=== PATIENT | male | born 1955 | race African-American/Black ===

== ENCOUNTER 2021-03-23 22:35 | Inpatient (IN) | payer OTHER ==
[~2021-03-23] VITALS: Ht 190.5 cm; Wt 92.1 kg
--- NOTE | ~2021-03-23 | EMS ---
[address] [address] EMS Patient Care Report Name: YANETH HARVEY Room #: 211-P ADM IN M.R.#: [id number] Admission: 03/24/21 Attend Phys: Rivera Guzman MD Discharge: Date of : 55 Report #: [id number] THIS REPORT FOR: //name// Report Transmitted: 03/26/2021 09:41 EMS Care Summary [place], [place]/[facility] Incident [id number] @ 03/23/2021 22:10 Incident Location [id number] [place] [address] Patient YANETH MOYA Male, 65 Years 1955 Patient Address [id number] [place] [address] [address] [place] [address] Patient History Lung Cancer, Chief Complaint Respiratory distress Disposition Transported [place] Dispatch Reason Breathing Problem Transported To [facility] Narrative M42 arrived on scene to find the patient lying supine in his bed. Nursing staff said the patient had an o2 sat of 40% on room air. Patient has stage 3 lung cancer. Patient had been short of breath for around 15 minutes. Patient denied chest pain, fever, cough, or feeling lightheaded. Patient had his covid-19 vaccination and had a negative covid-19 earlier in the week. Patient was moved to the cot using a keshawn writer producer. Transport decision was made emergent to [facility]. En route I was unable to obtain IV access. Patient said [address] [address] EMS Patient Care Report Name: YANETH HARVEY Room #: 211-P ADM IN .R.#: [id number] Admission: 03/24/21 Attend Phys: Rivera Guzman MD Discharge: Date of : 55 Report #: [id number] he felt like he was able to breathe better and was able to talk in complete sentences. M42 arrived on scene of the hospital and patient care was transferred to the RN. Initial Vitals @22:28P: 176,SpO2: 70, @22:27P: 126,BP: 91/59,SpO2: 68, @22:25P: 132,SpO2: 74, @22:33P: 131,SpO2: 60, @22:30P: 128,SpO2: 69, @22:26P: 128,SpO2: 69, @22:26P: 107,R: 18,BP: 91/67,Pain: 0/10,GCS: 15,SpO2: 68,Revised Trauma: 12, @22:31P: 124,R: 16,BP: 91/54,Pain: 0/10,GCS: 15,SpO2: 80,Revised Trauma: 12, @22:22P: 86,R: 18,BP: 97/60,Pain: 0/10,GCS: 15,SpO2: 88,Revised Trauma: 12, Assessments @22:21MENTAL:No Abnormalities,SKIN:No Abnormalities,HEENT:Head/Face: No Abnormalities,Eyes: No Abnormalities,Neck/Airway: No Abnormalities,LUNG SOUNDS:General: No Abnormalities,Left Upper: No Abnormalities,Right Upper: No Abnormalities,Left Lower: No Abnormalities,Right Lower: No Abnormalities,ABDOMEN:General: No Abnormalities,Left Upper: No Abnormalities,Right Upper: No Abnormalities,Left Lower: No Abnormalities,Right Lower: No Abnormalities,PELVIS//GI:No Abnormalities,EXTREMITIES:Left Arm: No Abnormalities,Right Arm: No Abnormalities,Left Leg: No Abnormalities,Right Leg: No Abnormalities,PULSE:NEURO:No Abnormalities,@22:32MENTAL:No Abnormalities,SKIN:No Abnormalities,HEENT:Head/Face: No Abnormalities,Eyes: No Abnormalities,Neck/Airway: No Abnormalities,LUNG SOUNDS:General: No Abnormalities,Left Upper: No Abnormalities,Right Upper: No Abnormalities,Left Lower: No Abnormalities,Right Lower: No Abnormalities,ABDOMEN:General: No Abnormalities,Left Upper: No Abnormalities,Right Upper: No Abnormalities,Left Lower: No Abnormalities,Right Lower: No Abnormalities,PELVIS//GI:No Abnormalities,EXTREMITIES:Left Arm: No Abnormalities,Right Arm: No Abnormalities,Left Leg: No Abnormalities,Right Leg: No Abnormalities,PULSE:NEURO:No Abnormalities, Impression Acute Respiratory Distress (Dyspnea) Procedures @22:21ALS AssessmentResponse: UnchangedSucceeded@22:21Oxygen FlowRate: 15 Device: Non Re-breather Mask (NRB) Response: ImprovedSucceeded Timeline 22:09,Call Received 22:09,Dispatch Notified 22:10,Dispatched [address] [address] EMS Patient Care Report Name: YANETH HARVEY Room #: 211-P ADM IN M.R.#: [id number] Admission: 03/24/21 Attend Phys: Rivera Guzman MD Discharge: Date of : 55 Report #: [id number] 22:11,En Route 22:19,On Scene 22:21,At Patient 22:21,ALS Assessment,Response: UnchangedSucceeded, 22:21,Oxygen FlowRate: 15 Device: Non Re-breather Mask (NRB) Response: ImprovedSucceeded, 22:22,BP: 97/60 M,PULSE: 86,RR: 18 R,SPO2: 88 Ox,ETCO2: ,BG: ,PAIN: 0,GCS: 15, 22:25,BP: / M,PULSE: 132,RR: R,SPO2: 74 Ox,ETCO2: ,BG: ,PAIN: ,GCS: , 22:26,BP: / M,PULSE: 128,RR: R,SPO2: 69 Ox,ETCO2: ,BG: ,PAIN: ,GCS: , 22:26,BP: 91/67 M,PULSE: 107,RR: 18 R,SPO2: 68 Ox,ETCO2: ,BG: ,PAIN: 0,GCS: 15, 22:27,BP: 91/59 M,PULSE: 126,RR: R,SPO2: 68 Ox,ETCO2: ,BG: ,PAIN: ,GCS: , 22:27,Depart Scene 22:28,BP: / M,PULSE: 176,RR: R,SPO2: 70 Ox,ETCO2: ,BG: ,PAIN: ,GCS: , 22:30,BP: / M,PULSE: 128,RR: R,SPO2: 69 Ox,ETCO2: ,BG: ,PAIN: ,GCS: , 22:31,BP: 91/54 M,PULSE: 124,RR: 16 R,SPO2: 80 Ox,ETCO2: ,BG: ,PAIN: 0,GCS: 15, 22:33,BP: / M,PULSE: 131,RR: R,SPO2: 60 Ox,ETCO2: ,BG: ,PAIN: ,GCS: , 22:40,At Destination 22:42,Call Closed Disclaimer v1.1 Copyright 2020 [employer] This EMS Care Summary contains data elements from the applicable legal record (which may be displayed differently). It is designed to provide pertinent information for the following purposes: continuity of care, clinical quality, and state data reporting. The complete legal record is available to ED staff and administrators of the receiving hospital in ES's Patient Tracker. All data is provided "as is."
[2021-03-23 22:36] VITALS: BP 95/58
[2021-03-23 22:46] LABS: BE(vivo) 1.2 mmol/L (-2 to +3); PCO2 36.6 mmHg (35.0-45.0); pH 7.453 (7.360-7.450); sO2 87.5 % (92.0-98.0)
[2021-03-23 22:47] LABS: PO2 50.2 mmHg (80.0-100.0)
[2021-03-24] VITALS (7 sets, daily range): BP systolic 90–111; BP diastolic 63–73
[2021-03-24 00:09] LABS: ABSOLUTE NEUTROPHILS 13.7 thou/uL (1.4-8.2); BASOPHILS 0.1 % (0.0-2.0); EOSINOPHILS 0.1 % (0.0-3.0); LYMPHOCYTES 0.7 % (24.0-44.0); MCH 29.2 pg (26.0-34.0); MCV 94.1 fL (80.0-100.0); PLATELET COUNT 258 thou/uL (150-400); POLYS 93.1 % (36.0-66.0); RBC 3.08 mil/uL (4.50-6.00); RDW 15.7 % (10.5-14.5); WBC 14.7 thou/uL (4.0-11.0)
[2021-03-24 00:23] LABS: CALCIUM 7.8 mg/dL (8.5-10.1); CREATININE 1.2 mg/dL (0.7-1.3); POTASSIUM 3.4 mmol/L (3.5-5.1)
[2021-03-24 00:29] LABS: ALBUMIN 1.9 g/dL (3.4-5.0); TOTAL BILIRUBIN 0.4 mg/dL (0.2-1.0); TOTAL PROTEIN 6.1 g/dL (6.4-8.2)
--- NOTE | 2021-03-24 07:22 | NUR ---
TOOK OVER CARE FROM KUSH BOWEN AT THIS TIME
--- NOTE | 2021-03-24 07:43 | NUR ---
PT REFUSED ABG AND OR STICK TO LACTIC ACID. ED PROVIDER WAS NOTIFIED AND WENT TO BEDSIDE. ED PROVIDER ORDERING ANOTHER BOLUS OF IV FLUIDS AND CONTACTING DR. BOND. WILL CLOSELY MONITOR PT
--- NOTE | 2021-03-24 13:44 | NUR ---
A #5F TRIPLE LUMEN POWER PICC WAS PLACED ORDERED PER HOSPITAL POLICY AFTER A BEDSIDE TIMEOUT WAS COMPLETED. THE RIGHT BRACHIAL VEIN TO CATHETER RATIO WAS 29%. THE LINE WAS TRIMMED TO 44CM AND ADVANCED WITHOUT DIFFICULTY. THE LINE WAS CONFIRMED AT THE [facility] BY MARQUES 3CG. LINE WAS SECURED AND RELEASED FOR USE
[2021-03-24] MEDS ORDERED: PROAIR HFA8.5 GM INH (20:25)
[2021-03-24] MEDS ORDERED: ALLOPURINOL 10100 M3 PO (20:26)
[2021-03-24] MEDS ORDERED: LORAZEPAM 0.50.5 MG PO (20:27)
[2021-03-24] MEDS ORDERED: CRESTOR10 MG PO (20:27)
[2021-03-24] MEDS ORDERED: GLIPIZIDE 10 MG10 MG PO (20:28)
[2021-03-24] MEDS ORDERED: KRISTALOSE20 GM PO (20:29)
[2021-03-24] MEDS ORDERED: METFORMIN HCL500 MG PO (20:29)
[2021-03-24] MEDS ORDERED: ONDANSETRON HCL4 M2 PO (20:30)
[2021-03-24] MEDS ORDERED: OXYCODONE HCL 55 MG PO (20:31)
[2021-03-24] MEDS ORDERED: COMPAZINE10 MG PO (20:32)
[2021-03-24] MEDS ORDERED: SENNA-DOCUSATE1 EAC1 PO (20:33)
[2021-03-24] MEDS ORDERED: B-121000 MCG PO (20:34)
[2021-03-25 03:55] VITALS: BP 134/84
[2021-03-25 04:34] LABS: ALBUMIN 1.6 g/dL (3.4-5.0); MAGNESIUM 1.4 mg/dL (1.8-2.4); POTASSIUM 3.3 mmol/L (3.5-5.1); TOTAL BILIRUBIN 0.3 mg/dL (0.2-1.0); TOTAL PROTEIN 5.6 g/dL (6.4-8.2)
[2021-03-25 04:39] LABS: ABSOLUTE NEUTROPHILS 8.8 thou/uL (1.4-8.2); BASOPHILS 0.1 % (0.0-2.0); EOSINOPHILS 0.1 % (0.0-3.0); HEMATOCRIT 28.6 % (42.0-52.0); LYMPHOCYTES 2.8 % (24.0-44.0); MCH 29.8 pg (26.0-34.0); MCHC 31.6 g/dL (28.0-37.0); MCV 94.3 fL (80.0-100.0); MONOCYTES 7.6 % (1.0-8.0); PLATELET COUNT 233 thou/uL (150-400); POLYS 89.4 % (36.0-66.0); RBC 3.03 mil/uL (4.50-6.00); RDW 16.2 % (10.5-14.5); WBC 9.8 thou/uL (4.0-11.0)
--- NOTE | 2021-03-25 06:20 | NUR ---
Pt. slept fair during the night. Maintaining O2 sat in the upper 90's on 100% NRB mask. He does get short of breath with exertion. Denies any pain. TURBINE ENGINE ASSEMBLER notified of low K this am and high BG. Order received.
[2021-03-25 07:30] VITALS: BP 109/68
--- NOTE | 2021-03-25 12:45 | EKG ---
[address] [facility] [place] [address] ELECTROCARDIOGRAM REPORT Name: YANETH HARVEY Room #: 211-P ADM IN M.R.#: [id number] Admission: 03/24/21 Attend Phys: Rivera Guzman MD Discharge: Date of : 55 Report #: [id number] [facility] ED Test Date: 2021-03-24 Test Time: 05:05:58 Pat Name: YANETH HARVEY Department: Room: 211 Gender: M Role Player: darling yang : 1955 Requested By: Armond Acosta Order Number: [id number] MD: Adonay Lazcano Measurements Intervals [place] Rate: 97 P: 88 ME: 234 QRS: -4 QRSD: 96 T: 2 QT: 361 QTc: 459 Interpretive Statements Sinus rhythm Prolonged ME interval Inferior infarct, old No previous ECG available for comparison Electronically Signed On 03-25-2021 12:44:51 CDT by Adonay Lazcano [email or web address] <ELECTRONICALLY SIGNED> By: Adonay Lazcano MD, [facility] 03/25/21 [id number] Adonay Lazcano MD, FAC /EPI
[2021-03-25 15:55] VITALS: BP 112/65
--- NOTE | 2021-03-25 17:36 | NUR ---
PT STATES HE HAS RADIATION APPT. TOMORROW 03/26/21 AT [facility]
[2021-03-25 20:15] VITALS: BP 97/72
[2021-03-26 04:45] VITALS: BP 113/61
--- NOTE | 2021-03-26 06:38 | NUR ---
UPON SHIFT ASSESSMENT, PT AOX4. PT DENIES PAIN AND SOB WHILE ON 8L O2 VIA NC. PT TOLERATING PO INTAKE OF FLUIDS AND CARB CONTROLLED DIET WITHOUT ISSUE. PT WITHOUT NAUSEA OR EMESIS. PT RESTING IN BED THROUGHOUT SHIFT, VOIDING PER URINAL. FREQUENT REPOSITIONING ENCOURAGED WHILE IN BED, PT NOTED TO SHIFT INDEPENDENTLY. SENSATION INTACT. NONPITTING EDEMA NOTED TO LUE. PERIPHERAL PULSES FAINT IN ALL EXTREMITIES. CAPILLARY REFILL LESS THAN 3SEC THROUGHOUT. PT ENCOURAGED TO NOTIFY STAFF FOR ALL NEEDS, CALL LIGHT WITHIN REACH, BED ALARM ON, BED LOCKED IN LOWEST POSITION, FREQUENT MONITORING WILL CONTINUE.
[2021-03-26 07:50] VITALS: BP 139/74
[2021-03-26 11:40] VITALS: BP 113/67
--- NOTE | 2021-03-26 13:47 | NUR ---
Case opened to follow for dc planning. Pt admitted from [facility] due to respiratory failure/sepsis. The pt is there under his skilled rehab benefits with [facility] Medicare. He normally goes to [facility] and has been getting Rad Onc txs at [facility]. He has completed 13 out of 33 txs. Pt has dx of lung ca and was recently bronced at [facility]. His brother Senior Field Service Engineer Som Rollins and sister Keshav Asif are his dpoas for health care. He is normally on 3liters nc but currently needing 8liters. He is a DNR. [place] can accept him from readmission but will need a new ins auth to continue rehab. Clinical updated faxed to Yumi in admissions. She will fax a copy of his dpoa for hc documents. Will follow.
[2021-03-26 15:40] VITALS: BP 99/66
[2021-03-26 20:15] VITALS: BP 126/65
[2021-03-27 04:45] VITALS: BP 102/64
--- NOTE | 2021-03-27 07:42 | NUR ---
DENIES NEEDS THIS SHIFT.VOIDS PER URINAL.O2 3L NC.MONITOR SHOWS ST.POC CONTINUED.
[2021-03-27 08:00] VITALS: BP 114/74
[2021-03-27 12:00] VITALS: BP 105/59
[2021-03-27 15:35] VITALS: BP 118/75
[2021-03-27 17:11] LABS: APTT 35.2 Seconds (24.5-32.8); INR 1.19; PROTIME 12.9 Seconds (10.5-12.1)
[2021-03-27 19:28] VITALS: BP 95/57
--- NOTE | 2021-03-28 01:28 | NUR ---
ASSUMED CARE OF PT AT 1900 PT IS A/O X 4 AND DENIES PAIN. ASSESSMENT COMPLETED NOTED, PT WAS ON 3L HFNC AT THE START OF SHIFT, REQUIRING INCREASE TO 12L HFNC WITH SPO2 89-95, RT CONTINUES TO TITRATE FIO2 PER PROTOCOL. PT REMAINS NPO PER ORDERS, WILL CONTINUE TO WORK TOWARDS PT'S POC.
[2021-03-28 04:21] VITALS: BP 100/58
[2021-03-28 07:00] VITALS: BP 97/61
[2021-03-28 09:17] LABS: HEMATOCRIT 23.5 % (42.0-52.0); HEMOGLOBIN 7.5 gm/dL (14.0-18.0); MCH 29.5 pg (26.0-34.0); MCHC 31.8 g/dL (28.0-37.0); MCV 92.8 fL (80.0-100.0); RBC 2.53 mil/uL (4.50-6.00); RDW 15.7 % (10.5-14.5); WBC 12.3 thou/uL (4.0-11.0)
[2021-03-28 09:29] LABS: CALCIUM 7.5 mg/dL (8.5-10.1)
[2021-03-28 09:31] LABS: POTASSIUM 2.8 mmol/L (3.5-5.1)
[2021-03-28 15:30] VITALS: BP 130/91
--- NOTE | 2021-03-28 16:57 | NUR ---
patient with bronch procedure today. He is not stable for dc. 12 liters of oxygen current needs. updated [facility]. casemgt following
--- NOTE | 2021-03-28 17:00 | NUR ---
ASSESSMENT CHARTED - PT HAD BRONCH COMPLETED THIS AM - RACHEL DIET AND FLUIDS. K+ LOW GIVEN 20 IVPB X 2 AND REPEAT K 3.3 PT TO GET 40 MEQ X 2 PO. HYGIENE NEEDS TENDED TO THIS AFTERNOON - PT BECAME VERY SOB HR ELEAVTED - O2 TURNED UP TO 12 L - RESP TREATMENT GIVEN. PT SAT UP TO THE MID90'S FROM MID 80'S. HR DOWN FORM 130'S TO 110'S. PT WITH NO CO'S OF PAIN OR NAUSEA. ACCUCHECKS CHARTED. NO CO'S AT THE PRESENT TIME.
--- NOTE | 2021-03-28 18:41 | NUR ---
PT UP TO SIDE OF BED TO URINATE - BECAME EXTREMELY SOB O2 TURNED UP TO 15 LITERS - LITTLE EFFECT OF RESP STATUS AND O2 SAT. INFORMED PATIENT THE ONLY WAY I COULD HELP HIM WAS TO PLACE BIPAP ON HIM - HE AGREED AFTER HAVING REFUSED EARLIER TO BE PLACED ON THE BIPAP RR DROPPED FROM THE 40'S NOW INTO THE LOWER TO MID 30'S INCREASE FIO2 TO 70% AND CALLED RESP TO INFORM WHAT I HAD DONE AND RO PLEASE COME CHECK THE PATIENT.
[2021-03-28 20:38] VITALS: BP 121/67
[2021-03-29 03:25] LABS: CALCIUM 7.4 mg/dL (8.5-10.1); CREATININE 0.9 mg/dL (0.7-1.3); POTASSIUM 3.6 mmol/L (3.5-5.1)
[2021-03-29 04:33] VITALS: BP 127/68
--- NOTE | 2021-03-29 05:55 | NUR ---
ASSUMED CARE OF PT AT 1900, PT ASSESSMENT COMPLETED NOTED. PT HAS REQUIRED THE USE OF THE BIPAP ALL SHIFT D/T INCREASED WOB WITH ACCESSORY USE WHILE ON HFNC. PT HAS CONTINUED TO DESAT WITH EXERTION, PT REQUIRES FREQUENT REMINDING TO KEEP BIPAP MASK ON R/T INCREASED WOB. LEARNING OPERATIONS SPECIALIST NOTIFIED OF PT'S DECLINING PULMONARY STATUS AND MEDICATION ORDERED FOR AIR HUNGER X 1, PT RESPONED WELL TO MEDICATION, WITH DECREASED WOB, INCREASED SPO2. WILL CONTINUE TO WORK TOWARDS PT'S POC.
[2021-03-29 07:30] VITALS: BP 119/61
[2021-03-29 11:15] VITALS: BP 112/58
[2021-03-29 16:25] VITALS: BP 114/77
--- NOTE | 2021-03-29 17:54 | NUR ---
Pt still on 12liters o2. Pallliative care consulted. Will updated [facility] tomorrow. He will need to be 6l or less to return to the SNF. They will need updated therapy notes and ins auth. Will follow.
[2021-03-29 19:16] VITALS: BP 116/80
--- NOTE | 2021-03-29 19:29 | NUR ---
pT REMAINDED SAFE , AFEBRILE, NO FALL, PAIN CONTROLLED, GLUC COVERED, AIR HUNGER PERSISTS.
--- NOTE | 2021-03-30 03:12 | NUR ---
ASSUMED CARE OF PT AT 1900, PT REMAINS ON THE BIPAP TOLERATING WELL WHEN IN PLACE. ASSESSMENT COMPLETED NOTED, PT DENIES PAIN AT THIS TIME. PT BECOMES MORE SOA, WITH INCREASED WOB WITH BIPAP REMOVAL AND EXERTION. PT WAS REMINDED TO LEAVE BIPAP IN PLACE AND WAIT FOR NURSE OR RT TO BE PRESENT PRIOR TO BIPAP REMOVAL, PT STATED UNDERSTANDING. WILL CONTINUE TO WORK TOWARDS PT'S POC.
[2021-03-30 03:52] VITALS: BP 120/79
[2021-03-30 08:00] VITALS: BP 116/74
[2021-03-30 12:05] VITALS: BP 135/73
--- NOTE | 2021-03-30 12:20 | NUR ---
Palliative care consulted today. Pt wanting tx to [facility] where he has been receiving all his cancer treatment. Request called to [facility] [place] RN [phone] and face sheet faxed. Radiology has uploaded imaging to the cloud. [facility] indicates beds are very tight but they will look at it. [facility] form and [facility] transfer form on the chart if needed. Chart copy ordered. Pt now on 12liters/bipap. Will follow.
[2021-03-30 16:00] VITALS: BP 110/74
[2021-03-30 19:05] VITALS: BP 123/69
[2021-03-30 23:55] VITALS: BP 114/86
[2021-03-31 05:11] VITALS: BP 117/70
--- NOTE | 2021-03-31 07:02 | NUR ---
PT PULLED PICC LINE, PT CONFUSED PULLED OFF NC 02 . 02 REPLACED,SAT 93 % THEN AFTER 5-10 MINS SAT 98%. SALINE LOCKED PLACED IN RIGHT WRIST . PT ORIENTED TO PLACE AND ,SITUATON AND SELF. FACUNDO CHICAS NOTIFED. WILL CONITINUE TO MONITOR AND REPPORT CHANGES.
[2021-03-31 07:20] VITALS: BP 127/69
[2021-03-31 11:30] VITALS: BP 117/66
[2021-03-31 15:30] VITALS: BP 110/65
--- NOTE | 2021-03-31 15:48 | NUR ---
VASCULAR ACCESS NURSE ROUNDING. THIS PATIENT PULLED OUT HIS PICC LINE DURING THE NIGHT DUE TO CONFUSION AFTER RECIEVING MORPHINE. HE HAS A PIV BUT HE IS HAVING INCREASED SHORTNESS OF BREATH AND HE WAS CONCERNED ABOUT LOOSING PIV ACCESS. THE PATIENT REQUESTED MIDLINE PLACEMENT. RISK AND BENIFITS DISCUSSED. THE LEFT UPPER ARM BASILIC WAS TOO SMALL FOR PLACEMENT. THE RIGHT UPPER ARM BRACHIAL WAS WIDLEY PATENT. A #4F BIOFLO MIDLINE WAS PLACED PER HOSPITAL POLICY. THE LINE WAS TRIMMED TO 12CM AND ADVANCED WITHOUT DIFFICULTY. LINE SECURED AND RELEASED FOR USE
[2021-03-31 19:23] VITALS: BP 105/57
--- NOTE | 2021-03-31 19:30 | NUR ---
End shift note: Pt remained safe and comfortable, decreased labored breathing. However, remained on 10 L of HFNC to keep O2 sat above 95% at rest. Afebrile, increased appetite, SR wit 1st degree Block on tele. no other concerns. Transfer to [facility] pending. Meds given as scheduled. Vital signs WNL.
[2021-04-01 04:06] VITALS: BP 132/75
--- NOTE | 2021-04-01 05:15 | NUR ---
RESTED QUIETLY MOST OF SHIFT. STATES IS BREATHING BETTER. MOROPHINE GIVEN X2 FOR AIR HUNGER. WORKING ON GOALS AND PLAN OF CARE FOR NOC. CONTINUE TO ASSES CLOSELY. DENIES COMPLAINTS OF PAIN THIS SHIFT.
[2021-04-01 08:09] VITALS: BP 112/67
--- NOTE | 2021-04-01 10:56 | NUR ---
Nutrition: Pt admitted with SOA. H/o lung cancer stage IV, anemia. Pt is DNR. Assessed for nsg risk. Per [facility], pt is eating 25-50% of meals - suboptimal. Wts are highly variable in [facility]: 149, 164, 206# all month long - PLEASE REWEIGH FOR ACCURACY. Meds: solumedrol, insulin. Unsure of accurate wt and wt hx at this time. RD to further assess wt hx, current wt and po intake. Until then, consider mild nutrition risk. RD to f/u 04/03/21.
[2021-04-01 12:30] VITALS: BP 141/78
[2021-04-01 12:36] VITALS: BP 125/63
[2021-04-01 16:05] VITALS: BP 134/75
--- NOTE | 2021-04-01 18:54 | NUR ---
PT ALERT AND ORIENTED TIMES FOUR. VSS. PT DENIES PAIN. PT TOLERATES MEDS AND MEALS. PT BROTHER AT BEDSIDE. WILL CONTINIUE TO MONITOR.
[2021-04-01 19:32] VITALS: BP 132/68
[2021-04-02 04:04] VITALS: BP 128/71
--- NOTE | 2021-04-02 07:45 | NUR ---
SLEPT MOST OF SHIFT. TURNS SELF IN BED. NO COMPLAINTS OF AIR HUNGER THIS SHIFT. O2 SAT 100% ON 4L/NC. WORKING ON GOALS AND PLAN OF CARE FOR NOC. CONTINUE TO ASSES. DANGLES TO VOID NEEDED.
[2021-04-02 08:00] VITALS: BP 135/75
[2021-04-02 12:00] VITALS: BP 137/75
[2021-04-02 16:00] VITALS: BP 141/67
--- NOTE | 2021-04-02 18:37 | NUR ---
took over care for this patient at 0700. Patient resting at this time in bed. Wearing 4 L oxygen via nasal cannula. No complaints of SOA at this time. Patient normal sinus rhythm to sinus bradycardia. Patient complaint of pain at this time 5 out of 10; pain medication administered at this time. Fall precautions in place and call light within reach.
[2021-04-02 19:15] VITALS: BP 122/69
[2021-04-03 03:59] VITALS: BP 130/62
[2021-04-03 08:00] VITALS: BP 120/59
--- NOTE | 2021-04-03 11:47 | NUR ---
Transfer request called to [facility] per pulm request due to obstruction of mainstem brochus. Pt has pulm/onc tx there. Face sheet/ins cards faxed. Pt does not need an ICU bed as his repiratory status is improved at 3-4liters o2 and bipap at noc. [facility] DON updated as well and clinical faxed. Awaiting response from [facility]. They do not have any beds this am but will call the attending and attempt to place pt on the wait list.
[2021-04-03 12:00] VITALS: BP 140/68
[2021-04-03 16:00] VITALS: BP 136/77
[2021-04-03 19:46] VITALS: BP 133/71
[2021-04-04 03:30] VITALS: BP 120/69
[2021-04-04 07:12] VITALS: BP 129/85
--- NOTE | 2021-04-04 09:20 | NUR ---
SLEPT MOST OF SHIFT. JANELLINE X1 FOR AIR HUNGER. CONTINUE TO ASSES
[2021-04-04 12:13] VITALS: BP 137/35
[2021-04-04 16:02] VITALS: BP 109/72
[2021-04-04] MEDS ORDERED: ACETYLCYST200 MG/1 M INH (16:11)
[2021-04-04] MEDS ORDERED: ZOSYN 3.373.375 GM/1 IV (16:11)
[2021-04-04] MEDS ORDERED: SOLU-MEDRO40 MG/1 M1 IV PUSH (16:11)
[2021-04-04] MEDS ORDERED: PEPCID20 MG PO (16:11)
[2021-04-04] MEDS ORDERED: IPRAT-ALBUT 0.5-3 ML INH (16:11)
[2021-04-04] MEDS ORDERED: ENOXAPARIN40 MG/0.1 SUBQ (16:11)
[2021-04-04] MEDS ORDERED: ACETAMINOPHEN325 M1 PO (16:11)
--- NOTE | 2021-04-04 16:37 | NUR ---
Spoke with [facility] transfer center both in morning and afternoon. Britta from transfer center reports bed avail at [facility] room N403. Chart copied, notified phys, patient and sister DPOA of bed at [facility]. [facility] for 1800. Notified transfer center time of transport. RN has number for report no further needs.
--- NOTE | 2021-04-04 20:20 | NUR ---
PT ALERT AND ORIENTED TIMES FOUR. VSS. PT DENIES PAIN/SOA. PT TOLERATES MEDS AND MEALS. PLANS TO TRANSFER TO [facility] TODAY. WILL CONTINUE TO MONITOR.
== END 2021-04-04 18:20 | disposition short-term general hospital (02) | DRG 871 ==
LOC: ER 22:35 → 2N 03-24 09:10
PROVIDERS: Hospitalist; Internal Medicine Pulmonary Disease; Student in an Organized Health Care Education/Training Program; ADMIT Internal Medicine; ATTEND Internal Medicine
PROC: 02HV33Z Insertion of Infusion Device into Superior Vena Cava, Percutaneous Approach (ICD-10-PCS; principal; 2021-03-24)
PROC: 5A0935A Assistance with Respiratory Ventilation, Less than 24 Consecutive Hours, High Flow/Velocity Cannula (ICD-10-PCS; 2021-03-27)
PROC: 5A0935A Assistance with Respiratory Ventilation, Less than 24 Consecutive Hours, High Flow/Velocity Cannula (ICD-10-PCS; 2021-03-28)
PROC: 5A09357 Assistance with Respiratory Ventilation, Less than 24 Consecutive Hours, Continuous Positive Airway Pressure (ICD-10-PCS; 2021-03-28)
PROC: 0BDC8ZX Extraction of Right Upper Lung Lobe, Via Natural or Artificial Opening Endoscopic, Diagnostic (ICD-10-PCS; 2021-03-28)
PROC: 5A09357 Assistance with Respiratory Ventilation, Less than 24 Consecutive Hours, Continuous Positive Airway Pressure (ICD-10-PCS; 2021-03-29)
PROC: 5A0935A Assistance with Respiratory Ventilation, Less than 24 Consecutive Hours, High Flow/Velocity Cannula (ICD-10-PCS; 2021-03-29)
PROC: 5A0935A Assistance with Respiratory Ventilation, Less than 24 Consecutive Hours, High Flow/Velocity Cannula (ICD-10-PCS; 2021-03-30)
PROC: 5A09357 Assistance with Respiratory Ventilation, Less than 24 Consecutive Hours, Continuous Positive Airway Pressure (ICD-10-PCS; 2021-03-30)
PROC: 5A0955A Assistance with Respiratory Ventilation, Greater than 96 Consecutive Hours, High Flow/Velocity Cannula (ICD-10-PCS; 2021-03-31)
PROC: 5A09357 Assistance with Respiratory Ventilation, Less than 24 Consecutive Hours, Continuous Positive Airway Pressure (ICD-10-PCS; 2021-03-31)
DX: A41.9 Sepsis, unspecified organism (principal); J96.21 Acute and chronic respiratory failure with hypoxia; J96.22 Acute and chronic respiratory failure with hypercapnia; J69.0 Pneumonitis due to inhalation of food and vomit; J98.19 Other pulmonary collapse; R04.2 Hemoptysis; J98.11 Atelectasis; J44.1 Chronic obstructive pulmonary disease with (acute) exacerbation; C34.91 Malignant neoplasm of unspecified part of right bronchus or lung; Q32.4 Other congenital malformations of bronchus; J98.09 Other diseases of bronchus, not elsewhere classified; R53.81 Other malaise; Z66 Do not resuscitate; F32.9 Major depressive disorder, single episode, unspecified; M10.9 Gout, unspecified; E78.5 Hyperlipidemia, unspecified; I10 Essential (primary) hypertension; D63.8 Anemia in other chronic diseases classified elsewhere; Z20.822 Contact with and (suspected) exposure to COVID-19; Z85.118 Personal history of other malignant neoplasm of bronchus and lung; Z86.19 Personal history of other infectious and parasitic diseases; Z86.711 Personal history of pulmonary embolism; Z51.5 Encounter for palliative care
CPT/HCPCS: 10081; 27000; 62110; 62900; 70005